=== PATIENT | male | born 1970 | race Caucasian/White ===

== ENCOUNTER 2016-06-18 05:55 | Observation (INO) | payer BC ==
[2016-06-17 11:43] VITALS: BMI 27.8
[~2016-06-18] VITALS: Ht 185.4 cm; Wt 92.8 kg
[2016-06-18] VITALS (19 sets, daily range): BP systolic 113–153; BP diastolic 52–89; PULSE 60–103; RESP 16–20; Ht 185.4 cm; Wt 92.8 kg
[~2016-06-18 05:55] MED LIST: HYDR-902 PO; IBUP-1542 PO
[2016-06-18] MEDS ORDERED: CEFAZOLIN 2 GM/50 ML (PMX) 50 ML IVPB SCH (06:00)
[2016-06-18] MEDS ORDERED: LACTATED RINGER'S 1,000 ML IV* SCH (06:00)
[2016-06-18 06:46] LABS: ADD SCAN DIFF NO
[2016-06-18 06:51] LABS: BASOPHILS % 0.6 % (0.0-2.0); EOSINOPHILS # 0.1 10^3/ul (0.0-0.5); EOSINOPHILS % 1.5 % (0.0-7.0); HEMOGLOBIN 13.2 g/dl (14.0-18.0); LYMPHOCYTES # 1.6 10^3/ul (0.8-2.9); LYMPHOCYTES % 34.7 % (15.0-51.0); MEAN CORPUSCULAR HEMOGLOBIN 31.4 pg (29.0-33.0); MEAN CORPUSCULAR HGB CONC 34.7 g/dl (32.0-37.0); MEAN CORPUSCULAR VOLUME 90.3 fl (82.0-101.0); MEAN PLATELET VOLUME 9.5 fl (7.4-10.4); MONOCYTE # 0.6 10^3/ul (0.3-0.9); MONOCYTES % 11.9 % (0.0-11.0); NEUTROPHIL # 2.4 10^3/ul (1.6-7.5); NEUTROPHILS % 51.1 % (39.0-77.0); PLATELET COUNT 246 10^3/UL (140-415); RED BLOOD COUNT 4.21 10^6/ul (4.70-6.10); RED CELL DISTRIBUTION WIDTH 11.7 % (11.5-14.5); WHITE BLOOD COUNT 4.7 10^3/ul (4.8-10.8)
[2016-06-18] MEDS ORDERED: POLYMYXIN/BACITRACIN 1L IRRIG ONE (06:55)
--- NOTE | 2016-06-18 07:03 | HPN ---
Date/Time of Note Date/Time of Note DATE: 06/18/16 TIME: 07:03 Interval H&P Admission Note Pt. seen H&P reviewed: No system changes STEVE MERINO MD June 18, 2016 07:03
[2016-06-18] MEDS ORDERED: GELATIN SIZE 100 SPONGE ONE (07:14)
[2016-06-18] MEDS ORDERED: THROMBIN 5000 UNIT VIAL ONE (07:14)
[2016-06-18] MEDS ORDERED: BUPIVACAINE 0.25%/EPI (SDV) 30 ML INJ ONE (07:14)
[2016-06-18] MEDS ORDERED: HEPARIN 1000 UNITS/NS (A-LINE) 0 ML ONE (07:23)
[2016-06-18] MEDS ORDERED: METOCLOPRAMIDE 10 MG INJ ONE (07:35)
[2016-06-18] MEDS ORDERED: PROPOFOL 20 ML ONE ×2 (07:35→08:01)
[2016-06-18] MEDS ORDERED: MIDAZOLAM 1 MG/ML 2 ML INJ ONE (07:35)
[2016-06-18] MEDS ORDERED: CEFAZOLIN 1 GM INJ ONE (07:36)
[2016-06-18] MEDS ORDERED: FENTAnyl 50 MCG/ML VIAL ONE (07:37)
[2016-06-18] MEDS ORDERED: HYDROmorphONE 2 MG/ML SYG ONE (07:54)
[2016-06-18] MEDS ORDERED: POLYMYXIN/BACITRACIN 1L IRRIG IRR ONE (07:56)
[2016-06-18] MEDS ORDERED: BUPIVACAINE 0.25%/EPI (SDV) 30 ML INJ INJ ONE (07:56)
[2016-06-18] MEDS ORDERED: THROMBIN 5000 UNIT VIAL TOP ONE (09:21)
[2016-06-18] MEDS ORDERED: HEMOSTATIC MATRIX SYG ZFS ONE (09:21)
[2016-06-18] MEDS ORDERED: BETAMET NA PHOS/AC(6 MG/ML) 5ML INJ ONE (09:23)
[2016-06-18] MEDS ORDERED: MEPERIDINE 25 MG INJ IV PRN (09:30)
[2016-06-18] MEDS ORDERED: HYDROmorphONE (0.2 MG/ML) 10ML SYG IV PRN ×2 (09:30)
[2016-06-18] MEDS ORDERED: METOCLOPRAMIDE 10 MG INJ IV PRN (09:30)
[2016-06-18] MEDS ORDERED: OXYCODONE/ACETAMINOPHEN (5/325) TAB PO PRN ×2 (09:30)
[2016-06-18] MEDS ORDERED: ONDANSETRON 4 MG INJ IV PRN ×2 (09:30→11:00)
[2016-06-18] MEDS ORDERED: DIPHENHYDRAMINE 50 MG INJ IV PRN (09:30)
[2016-06-18] MEDS ORDERED: ONDANSETRON 4 MG INJ ONE (09:41)
[2016-06-18] MEDS ORDERED: MEPERIDINE 100 MG INJ ONE (09:55)
[2016-06-18] MEDS: HYDROmorphONE (0.2 MG/ML) 10ML SYG IV PRN ×2 (10:34→10:47)
--- NOTE | 2016-06-18 10:48 | OPR ---
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 He was found to have a disc herniation which correlated well with his symptoms. The patient had failed conservative treatment. Risks, benefits, and alternatives to microdiscectomy were explained to the patient and they wished to proceed. Risks explained included but were not exclusive of bleeding, infection, cauda equina syndrome, nerve injury, dural tear, iatrogenic instability, recurrent disc herniation, fracture, vascular injury, bowel injury, stroke, heart attack and pulmonary embolism. DESCRIPTION OF TECHNIQUE: The patient was identified in the preoperative area and taken to the operating room. Rapid induction of general endotracheal anesthesia was performed. The patient was given 2 g of cefazolin for prophylaxis. The patient was then placed in the prone position on the Bobby frame on a Mookie flat top table with all prominences well padded. The back was prepped and draped in the usual sterile manner. Using a spinal needle and intraoperative fluoroscopy, the appropriate level was clearly identified (L5-S1) . The skin was injected using 0.25% Marcaine with epinephrine. Longitudinal midline incision was then created using a 10 blade. Further dissection through soft tissue was performed using electrocautery down to the spinous processes. The dissection was taken down the right side of the lamina and over the facet joint capsule. A self-retaining retractor was applied. Again, intraoperative fluoroscopy confirmed the appropriate level. The microscope was brought into use for microdissection. A small portion of the caudal aspect of the cephalad lamina was resected using a high-speed bur. A series of Kerrison rongeurs were then used to resect the ligamentum flavum. The dura and traversing nerve root were both directly visualized. These were retracted gently in a medial direction. The extruded right paracentral fragment was see. The pseudo anulus was incised using an 11 blade. Several loose fragments of disk were removed. These were removed back to a stable portion of the disk. The disk space was further pressurized using a using normal saline through a syringe to ensure that no loose fragments remained behind. Palpation with a ball-tip probe did not reveal any further stenosis. The traversing S1 nerve root was noted to be significantly decompressed. Meticulous attention was paid towards hemostasis using FloSeal as well as Gelfoam and thrombin. Care was taken to remove all FloSeal and Gelfoam prior to wound closure. The fascia was then closed using 0 Vicryl in an interrupted fashion. Subcutaneous tissue was closed using 2-0 Vicryl in an interrupted fashion. The skin was closed using a running 4-0 Monocryl stitch. The wound was dressed using Dermabond and a 4x4 sterile gauze. The patient was returned to the supine position. He was extubated immediately postoperatively and taken to the recovery room in stable condition. COMPLICATIONS: None. Anesthesia: general Estimated Blood Loss: minimal Complications: None Pt Condition Post Procedure: stable Disposition: PACU STEVE MERINO MD June 18, 2016 10:48
--- NOTE | 2016-06-18 10:53 | PDOCDIS ---
Discharge Instructions CONDITION Patient Condition: Good HOME CARE INSTRUCTIONS: Diet Instructions: Regular ACTIVITY: Activity Restrictions: Avoid heavy lifting FOLLOW UP/APPOINTMENTS Appointments Follow-up with Dr. Merino in 2 weeks STEVE MERINO MD June 18, 2016 10:53
[2016-06-18] MEDS ORDERED: NALOXONE (0.4 MG/ML) INJ IV PRN (11:00)
[2016-06-18] MEDS ORDERED: HYDROCODONE/APAP (5/325) TAB PO PRN ×2 (11:00)
--- NOTE | 2016-06-18 15:47 | RADRPT ---
PROCEDURE: Intraoperative imaging of the lumbar spine with fluoroscopy. CLINICAL INDICATION: Back pain. Intraoperative. TECHNIQUE: 2 images of the lumbar spine were obtained in the operating room with an image intensif ier. No radiologist was in attendance. 3.6 seconds of fluoroscopy time was used. COMPARISON: No prior study is available for comparison. FINDINGS: For the purposes of this report, the last true disk level is L5-S1. Images demonstrate posterior jamil rgical instruments at the L5-S1 level. IMPRESSION: 1. Intraoperative imaging of the lumbar spine. RPTAT: QQ .Buddy Lei MD, Date Time Electronically viewed and signed by .Buddy Lei MD, on 06/18/2016 15:47 .R/
== END 2016-06-18 13:00 | disposition home or self-care (01) ==
LOC: SDS 05:55 → MS1 10:48 → SDS 10:51
PROVIDERS: ADMIT Orthopaedic Surgery; ATTEND Orthopaedic Surgery
DX: M51.16 Intervertebral disc disorders with radiculopathy, lumbar region (principal)
CPT/HCPCS: 63030; 72100; 85025; 97161; 99217; J0690; J0702; J1170; J2175; J2250; J2405; J2765; J3010; G0378; J1644